=== PATIENT | male | born 1990 | race Caucasian/White ===

== ENCOUNTER → 2017-02-20 | Outpatient (CLI) | payer MEDICARE, OTHER ==
--- NOTE | 2017-02-20 12:07 | RAD ---
Examination: CT maxillofacial without contrast History: History of chronic congestion, sinus congestion, unable to breathe through nose comparison: 04/13/2008 PQRS Compliance Statement: One or more of the following individualized dose reduction techniques were utilized for this examination: 1. Automated exposure control 2. Adjustment of the mA and/or kV according to patient size 3. Use of iterative reconstruction technique Technique: Axial CT images of the maxillary facial bones were performed without contrast. Coronal and Sagittal reformats are performed. Findings: The bilateral orbital globes appear intact. The retro-orbital fat is maintained. The visualized frontal sinuses, ethmoidal sinuses, sphenoid sinuses, maxillary sinuses, mastoid air cells are clear. The bilateral pterygoid plates appear intact. There is mild thickening of the turbinates in the right nasal cavity. Minimal leftward deviation of the nasal septum. Impression: 1. No evidence of sinus disease. There is mild thickening of the nasal turbinates on the right, nonspecific, causing narrowing of the right nasal cavity.
== END | disposition home or self-care (01) ==
LOC: CT 11:09
PROVIDERS: ATTEND Physician Assistant
DX: J34.2 Deviated nasal septum (principal)
CPT/HCPCS: 70486

== ENCOUNTER 2018-07-15 11:11 | Emergency (ER) | payer MEDICARE, OTHER ==
[~2018-07-15] VITALS: Ht 188 cm; Wt 102.1 kg
[2018-07-15] MEDS ORDERED: IV NORMAL SALINE 1,000ML 1,000 ML IV ONE (11:45)
--- NOTE | 2018-07-15 11:52 | EKG ---
[address] [address] Test Date: 2018-07-15 Test Time: 11:49:43 Pat Name: DION FLEMING Department: Room: Gender: M Maintenance Mechanic Supervisor: : 1990 Requested By: DONA BAL Order Number: [id number] Reading MD: Noman Miles MD Measurements Intervals [place] Rate: 63 P: 43 PA: 148 QRS: 69 QRSD: 104 T: 34 QT: 386 QTc: 398 Interpretive Statements SINUS RHYTHM Electronically Signed On 07-16-2018 10:57:42 BROADCAST MAINTENANCE TECHNICIAN by Noman Miles MD
[2018-07-15 12:12] LABS: BASO # 0.1 x10^3/uL (0.0-0.2); BASO % 1 % (0-3); EOS # 0.2 x10^3/uL (0.0-0.7); EOS % 2 % (0-3); HEMATOCRIT 49.8 % (39.0-53.0); HEMOGLOBIN 16.7 g/dL (13.0-17.5); LYMPH # 2.2 x10^3/uL (1.0-4.8); LYMPH % 24 % (24-48); MEAN CORPUSCULAR HEMOGLOBIN 29 pg (25-35); MEAN CORPUSCULAR HGB CONC 34 g/dL (31-37); MEAN CORPUSCULAR VOLUME 86 fL (79-100); MONO # 0.7 x10^3/uL (0.0-1.1); MONO % 8 % (0-9); NEUT % 65 % (31-73); PLATELET COUNT 160 x10^3/uL (140-400); RED BLOOD COUNT 5.77 x10^6/uL (4.30-5.70); RED CELL DISTRIBUTION WIDTH 13.2 % (11.5-14.5); WHITE BLOOD COUNT 9.1 x10^3/uL (4.0-11.0)
[2018-07-15 12:21] LABS: AMPHETAMINE/METHAMPHETAMINE NEG (NEG); BARBITURATES NEG (NEG); BENZODIAZEPINES NEG (NEG); CANNABINOIDS NEG (NEG); COCAINE NEG (NEG); METHADONE NEG (NEG); OPIATES NEG (NEG); PHENCYCLIDINE NEG (NEG)
[2018-07-15 12:22] LABS: BILIRUBIN,URINE NEG (NEG); CLARITY,URINE CLEAR; COLOR,URINE STRAW; GLUCOSE,URINE NEG (NEG); NITRITE,URINE NEG (NEG); UROBILINOGEN,URINE 0.2 mg/dL (0.2 mg/dL)
[2018-07-15 12:23] LABS: BACTERIA,URINE 0 /HPF (0-FEW); SQUAMOUS EPITHELIAL CELL,UR OCC /LPF; WBC,URINE 0 /HPF (0-4)
[2018-07-15 12:27] LABS: ALBUMIN 3.9 g/dL (3.4-5.0); ALBUMIN/GLOBULIN RATIO 1.1 (1.0-1.7); CALCIUM 9.1 mg/dL (8.5-10.1); CREATININE 1.1 mg/dL (0.7-1.3); GFR 78.6; MAGNESIUM 2.2 mg/dL (1.8-2.4); POTASSIUM 4.1 mmol/L (3.5-5.1); TOTAL BILIRUBIN 0.6 mg/dL (0.2-1.0); TOTAL PROTEIN 7.6 g/dL (6.4-8.2)
[2018-07-15] MEDS ORDERED: IOHEXOL 300 MG/ML 75 ML VIAL. IV ONE (12:30)
--- NOTE | 2018-07-15 12:32 | RAD ---
PROCEDURE: CHEST PA LATERAL CLINICAL INDICATION: near syncope COMPARISON: None FINDINGS: No pneumothorax identified. Cardiac and mediastinal contours unremarkable. No pulmonary consolidation or acute airspace disease. No acute osseous abnormalities identified. IMPRESSION: No pulmonary consolidation or acute airspace disease. Electronically signed by: Jose Rafael Morris DO (07/15/2018 12:29 PM) [id number]
--- NOTE | 2018-07-15 12:41 | PHYS DOC ---
Past History Past Medical History: Anxiety, Bipolar Past Surgical History: Tonsillectomy Alcohol Use: Rarely Drug Use: None Adult General Chief Complaint Chief Complaint: DIZZY/LIGHT HEADED HPI HPI 28-year-old male presents with dizziness and near syncope. Patient states that he got a severe cold in April has been battling sinus pressure since that time. He is on his second round of antibiotics and his primary doctor at this time. He presents today because he has had several episodes of dizziness which he describes as an off balance and lightheaded feeling. He also has some dimming of his vision. His episodes only last for a few seconds and improve if he rests. He's had episodes while working out, moving his head too quickly, and sometimes bending over and standing up. He has not passed out completely. He has had to miss work for this. Patient also states losing weight recently. He denies hearing loss or dry skin. He denies urinary drink use, alcohol or drug use. He denies fever or chills. Review of Systems Review of Systems Constitutional: Denies fever or chills [] Eyes: Denies redness, or eye pain [] HENT: Denies nasal congestion or sore throat [] Respiratory: Denies cough or shortness of breath [] Cardiovascular: No additional information not addressed in HPI [] GI: Denies abdominal pain, nausea, vomiting, bloody stools or diarrhea [] : Denies dysuria or hematuria [] Musculoskeletal: Denies back pain or joint pain [] Integument: Denies rash or skin lesions [] Neurologic: Dizziness[] Endocrine: Denies polyuria or polydipsia [] All other systems were reviewed and found to be within normal limits, except as documented in this note. Current Medications Current Medications Current Medications Medications (Trade) Dose Ordered Sig/Karissa Start Time Stop Time Status Last Admin Dose Admin Iohexol (Omnipaque 300 Mg/ml) 75 ml 1X ONCE 07/15/18 12:30 07/15/18 12:31 DC Sodium Chloride 1,000 ml @ 1,000 mls/hr 1X ONCE 07/15/18 11:45 07/15/18 12:44 Allergies Allergies Allergies Coded Allergies Type Severity Reaction Last Updated Verified amoxicillin Allergy Unknown 07/15/18 Yes cefpodoxime Allergy Unknown 07/15/18 Yes clavulanic acid Allergy Unknown 07/15/18 Yes Physical Exam Physical Exam Constitutional: Well developed, well nourished, no acute distress, non-toxic appearance. [] HENT: Normocephalic, atraumatic, bilateral external ears normal, oropharynx moist, no oral exudates, nose normal. [] Eyes: PERRLA, EOMI, conjunctiva normal, no discharge. No nystagmus[] Neck: Normal range of motion, no tenderness, supple, no stridor. [] Cardiovascular:Heart rate regular rhythm, no murmur [] Lungs & Thorax: Bilateral breath sounds clear to auscultation [] Abdomen: Bowel sounds normal, soft, no tenderness, no masses, no pulsatile masses. [] Skin: Warm, dry, no erythema, no rash. [] Back: No tenderness, no CVA tenderness. [] Extremities: No tenderness, no cyanosis, no clubbing, ROM intact, no edema. [] Neurologic: Alert and oriented X 3, normal motor function, normal sensory function, no focal deficits noted. [place]-Hallpike maneuver negative.[] Psychologic: Affect normal, judgement normal, mood normal. [] Current Patient Data Vital Signs Vital Signs Date Time Temp Pulse Resp B/P (MAP) Pulse Ox O2 Delivery O2 Flow Rate FiO2 07/15/18 11:16 98.5 77 18 98 Room Air Lab Results Laboratory Tests Test 07/15/18 11:22 07/15/18 11:52 Urine Collection Type Unknown Urine Color Straw Urine Clarity Clear Urine pH 7.0 Urine Specific [place] 1.010 Urine Protein Neg (NEG-TRACE) Urine Glucose (UA) Neg mg/dL (NEG) Urine Ketones (Stick) Neg mg/dL (NEG) Urine Blood Trace (NEG) Urine Nitrite Neg (NEG) Urine Bilirubin Neg (NEG) Urine Urobilinogen Dipstick 0.2 mg/dL (0.2 mg/dL) Urine Leukocyte Esterase Neg (NEG) Urine RBC 3-5 /HPF (0-2) Urine WBC 0 /HPF (0-4) Urine Squamous Epithelial Cells Occ /LPF Urine Bacteria 0 /HPF (0-FEW) Urine Opiates Screen Neg (NEG) Urine Methadone Screen Neg (NEG) Urine Barbiturates Neg (NEG) Urine Phencyclidine Screen Neg (NEG) Urine Amphetamine/Methamphetamine Neg (NEG) Urine Benzodiazepines Screen Neg (NEG) Urine Cocaine Screen Neg (NEG) Urine Cannabinoids Screen Neg (NEG) Urine Ethyl Alcohol Neg (NEG) White Blood Count 9.1 x10^3/uL (4.0-11.0) Red Blood Count 5.77 x10^6/uL (4.30-5.70) H Hemoglobin 16.7 g/dL (13.0-17.5) Hematocrit 49.8 % (39.0-53.0) Mean Corpuscular Volume 86 fL (79-100) Mean Corpuscular Hemoglobin 29 pg (25-35) Mean Corpuscular Hemoglobin Concent 34 g/dL (31-37) Red Cell Distribution Width 13.2 % (11.5-14.5) Platelet Count 160 x10^3/uL (140-400) Neutrophils (%) (Auto) 65 % (31-73) Lymphocytes (%) (Auto) 24 % (24-48) Monocytes (%) (Auto) 8 % (0-9) Eosinophils (%) (Auto) 2 % (0-3) Basophils (%) (Auto) 1 % (0-3) Neutrophils # (Auto) 6.0 x10^3uL (1.8-7.7) Lymphocytes # (Auto) 2.2 x10^3/uL (1.0-4.8) Monocytes # (Auto) 0.7 x10^3/uL (0.0-1.1) Eosinophils # (Auto) 0.2 x10^3/uL (0.0-0.7) Basophils # (Auto) 0.1 x10^3/uL (0.0-0.2) Sodium Level 139 mmol/L (136-145) Potassium Level 4.1 mmol/L (3.5-5.1) Chloride Level 102 mmol/L (98-107) Carbon Dioxide Level 29 mmol/L (21-32) Anion Gap 8 (6-14) Blood Urea Nitrogen 11 mg/dL (8-26) Creatinine 1.1 mg/dL (0.7-1.3) Estimated GFR (Cockcroft-Gault) 78.6 BUN/Creatinine Ratio 10 (6-20) Glucose Level 103 mg/dL (70-99) H Calcium Level 9.1 mg/dL (8.5-10.1) Magnesium Level 2.2 mg/dL (1.8-2.4) Total Bilirubin 0.6 mg/dL (0.2-1.0) Aspartate Amino Transferase (AST) 26 U/L (15-37) Alanine Aminotransferase (ALT) 30 U/L (16-63) Alkaline Phosphatase 56 U/L (46-116) Total Protein 7.6 g/dL (6.4-8.2) Albumin 3.9 g/dL (3.4-5.0) Albumin/Globulin Ratio 1.1 (1.0-1.7) EKG EKG Sinus rhythm, rate 63, normal axis, no ST elevations or depressions.[] Radiology/Procedures Radiology/Procedures [] Impressions: CT head without and with intravenous contrast History: Dizziness, visual disturbance. Retro-orbital pressure and pain in the sinuses. Comparison: CT head April 13, 2008. Technique: Axial images are obtained of the head from the skull base through the vertex without IV contrast. After intravenous contrast menstruation, 75 mL Omnipaque 300, repeat CT of the head was performed. Exposure: One or more of the following individualized dose reduction techniques were utilized for this examination: 1. Automated exposure control 2. Adjustment of the mA and/or kV according to patient size 3. Use of iterative reconstruction technique Findings: The ventricles are appropriate in size, shape, and location for the patient's age. No obvious intracranial mass, mass-effect, midline shift, hemorrhage or obvious acute infarction is identified. Basilar cisterns are patent. No enhancing intracranial mass or abnormal intracranial enhancement is identified. Bone windows demonstrate no acute calvarial abnormality. The visualized paranasal sinuses appear clear. Impression: No acute intracranial process. Please note that CT can be relatively insensitive to acute ischemic infarction for up to 24 hours after symptom onset. Electronically signed by: Venkatesh Willett MD (07/15/2018 12:46 PM) [id number] DICTATED AND SIGNED BY: VENKATESH WILLETT MD DATE: 07/15/18 1241 CC: DONA BAL DO; JALEN RODGERS DO PROCEDURE: CHEST PA LATERAL CLINICAL INDICATION: near syncope COMPARISON: None FINDINGS: No pneumothorax identified. Cardiac and mediastinal contours unremarkable. No pulmonary consolidation or acute airspace disease. No acute osseous abnormalities identified. IMPRESSION: No pulmonary consolidation or acute airspace disease. Electronically signed by: Jose Rafael Morris DO (07/15/2018 12:29 PM) [id number] DICTATED AND SIGNED BY: JOSE RAFAEL MORRIS DO DATE: 07/15/18 1228 CC: DONA BAL DO; JALEN RODGERS DO Course & Med Decision Making Course & Med Decision Making Pertinent Labs and Imaging studies reviewed. (See chart for details) Labs are unremarkable. Urinalysis is unremarkable. His urine drug screen is negative. EKG is unremarkable. The patient's head CT and chest x-ray are unremarkable. I do not have a definitive reason for the patient's symptoms. It is possible that he is going in and out of an arrhythmia. This could also be an inner ear issue. It does not appear to be immediately life-threatening. I recommend that the patient follow-up with his PCP for further workup. He is stable for discharge at this time. [] Dragon Disclaimer Dragon Disclaimer This electronic medical record was generated, in whole or in part, using a voice recognition dictation system. Departure Departure: Referrals: JALEN RODGERS DO (PCP) DONA BAL DO Jul 15, 2018 12:41
--- NOTE | 2018-07-15 12:49 | RAD ---
CT head without and with intravenous contrast History: Dizziness, visual disturbance. Retro-orbital pressure and pain in the sinuses. Comparison: CT head April 13, 2008. Technique: Axial images are obtained of the head from the skull base through the vertex without IV contrast. After intravenous contrast menstruation, 75 mL Omnipaque 300, repeat CT of the head was performed. Exposure: One or more of the following individualized dose reduction techniques were utilized for this examination: 1. Automated exposure control 2. Adjustment of the mA and/or kV according to patient size 3. Use of iterative reconstruction technique Findings: The ventricles are appropriate in size, shape, and location for the patient's age. No obvious intracranial mass, mass-effect, midline shift, hemorrhage or obvious acute infarction is identified. Basilar cisterns are patent. No enhancing intracranial mass or abnormal intracranial enhancement is identified. Bone windows demonstrate no acute calvarial abnormality. The visualized paranasal sinuses appear clear. Impression: No acute intracranial process. Please note that CT can be relatively insensitive to acute ischemic infarction for up to 24 hours after symptom onset. Electronically signed by: Venkaetsh Neumann MD (07/15/2018 12:46 PM) [place] [id number]
[2018-07-15 13:40] VITALS: BP 142/78
== END 2018-07-15 13:50 | disposition home or self-care (01) ==
LOC: ER 11:11
DX: R55 Syncope and collapse (principal); R42 Dizziness and giddiness; R51 Headache; F41.9 Anxiety disorder, unspecified; F31.9 Bipolar disorder, unspecified; Z88.1 Allergy status to other antibiotic agents; Z88.8 Allergy status to other drugs, medicaments and biological substances
CPT/HCPCS: 36415; 70470; 71046; 80053; 80307; 81001; 83735; 85025; 93005; 96360; 99285; Q9967; J7030